=== PATIENT | female | born 1985 | race Caucasian/White ===

== ENCOUNTER 2017-03-18 01:19 | Emergency (ER) | payer SELFPAY ==
[~2017-03-18] VITALS: Ht 152.4 cm; Wt 63.5 kg
[2017-03-18] MEDS ORDERED: BUSP15 PO (01:22)
[2017-03-18] MEDS ORDERED: SERT50TA12 PO (01:22)
[2017-03-18] MEDS ORDERED: METOCLOPRAMIDE HCL 5 MG/ML 2 ML VIAL IM ONE (01:45)
[2017-03-18] MEDS ORDERED: KETOROLAC TROMETHAMINE 30 MG/ML VIAL IVP ONE (01:45)
[2017-03-18] MEDS ORDERED: SODIUM CHLORIDE 0.9% 1,000 ML IV ONE (01:45)
[2017-03-18] MEDS ORDERED: DiphenhydrAMINE HCL 50 MG/ML VIAL IVP ONE (01:45)
[2017-03-18 03:42] VITALS: BP 121/67
== END 2017-03-18 03:45 | disposition home or self-care (01) ==
LOC: EMS 01:20
DX: G43.909 Migraine, unspecified, not intractable, without status migrainosus (principal); Z91.040 Latex allergy status
CPT/HCPCS: 96361; 96372; 96374; 99284; J1200; J2765; J7030; J1885